=== PATIENT | male | born 1945 | race Caucasian/White ===

== ENCOUNTER 2021-10-07 16:00 | Emergency (ER) | payer MEDICARE, OTHER, SELFPAY ==
--- NOTE | ~2021-10-07 | CT_ITS ---
EXAMINATION: CT abdomen pelvis wo con DATE: 10/08/2021 01:08 INDICATION: Abdominal pain TECHNIQUE: Computed tomography (CT) of the abdomen and pelvis was performed without intravenous contr ast. Automated exposure control and iterative reconstruction technique were employed. Exam dose: 920 .61 mGy-cm total exam DLP. COMPARISON: 12/28/2012 CT abdomen pelvis FINDINGS: Mild atelectasis and reticular changes in the peripheral lower lobes in middle lobe primari ly. No basilar consolidation. Normal heart size. Coronary artery calcifications. No pericardial or pl eural effusion. Small sliding hiatal hernia. The liver, gallbladder, bile ducts, spleen, pancreas and pancreatic duct as well as adrenal glands ar e unremarkable. Exophytic 1 cm right renal cyst. 4.5 cm lower pole left renal cyst is stable since 12/28/2012. No urin yoly tract calculus or hydroureteronephrosis. There is atherosclerotic calcification of the abdominal aorta and iliac arteries but no aneurysm. No intraperitoneal or retroperitoneal or pelvic mass lesion or adenopathy or ascites. Normal appendix. No bowel obstruction, bowel wall thickening, pneumatosis or intraperitoneal free air . There are multiple diverticula of the left colon, primarily in the sigmoid area; no CT evidence of diverticulitis. Bilateral fat-containing inguinal hernias and fat-containing umbilical hernia. There is some degenerative spurring of the thoracic and lumbar spine. There is prominent degenerative change at the apophyseal joints of the mid and lower lumbar and lumbosacral area with associated min imal grade 1 anterolisthesis at L4-5. Bilateral hip osteoarthritis. No suspicious osteolytic or osteoblastic lesions. IMPRESSION: Normal appendix Diverticulosis of the left colon; no CT evidence of diverticulitis Renal cysts Small sliding hiatal hernia Reviewed, dictated and finalized at [facility]. Reviewed, dictated and finalized at [facility]. [employer]
[2021-10-07 16:29] VITALS: BP 146/82; PULSE 73; RESP 20; TEMP 36.4; O2SAT 96
[2021-10-07 21:37] VITALS: BP 149/85; PULSE 73; RESP 18; O2SAT 99
--- NOTE | 2021-10-08 00:29 | ECG_ITS ---
Measurements Intervals [place] Rate: 71 P: 45 RI: 182 QRS: 9 QRSD: 106 T: 37 QT: 399 QTc: 436 Interpretive Statements SINUS RHYTHM EARLY PRECORDIAL R/S TRANSITION BASELINE ARTIFACT- I, II, III, AVR, AVL, AVF BORDERLINE ECG Electronically Signed On 10-08-2021 6:40:24 SITE SAFETY MANAGER by Jonatan Pineda D.O.
[2021-10-08 00:31] VITALS: BP 158/81; PULSE 82; RESP 18; O2SAT 97
--- NOTE | 2021-10-08 00:31 | ED.ABDPAIN ---
HPI - Abdominal Pain General Chief Complaint: Abdominal Pain Stated Complaint: lightheadaded, nausea, bad taste in mouth Time Seen by Provider: 10/08/21 00:24 Source: patient Mode of arrival: ambulatory Limitations: no limitations History of Present Illness HPI narrative: Patient is a 76-year-old male complaining of nausea accompanied by mild abdominal pain, mid abdomen, and lightheadedness that started 1 week ago. Patient states that he currently does not have any lightheadedness and that his abdominal pain has resolved but having mild nausea at this time. Patient states that his doctor told him to come in to get evaluated. Patient denies any chest pain, shortness of breath, vomiting, diarrhea, diaphoresis, fever or chills. Related Data Home Medications Medication Instructions Recorded Confirmed aspirin 81 mg tablet,delayed 81 mg PO DAILY 08/30/19 04/21/21 release fluticasone propionate 50 1 spray INTRANASAL BID 04/21/21 04/21/21 mcg/actuation nasal spray,suspension Allergies Allergy/AdvReac Type Severity Reaction Status Date / Time No Known Allergies Allergy Mild Unverified 03/04/09 09:01 Review of Systems Review of Systems: All systems reviewed & are unremarkable except as noted in HPI and below Constitutional: Constitutional: Denies body ache(s), Denies chills, Denies excessive sweating, Denies fatigue, Denies fever(s), Denies headache(s), Denies lethargy, Denies malaise, Denies weakness and Denies weight loss Eyes: Eyes: Denies blurry vision, Denies change in vision and Denies loss of vision ENT: Denies dizziness, Denies ear discharge, Denies headache(s), Denies lip swelling, Denies epistaxis, Denies nasal congestion, Denies neck pain, Denies throat swelling and Denies tongue swelling Cardiovascular: Cardiovascular: Denies chest pain, Denies chest pain at rest, Denies chest pain with activity, Denies diaphoresis, Denies rapid heart rate, Denies edema, Denies irregular heart rhythm, Denies lightheadedness, Denies palpitations, Denies dyspnea and Denies dyspnea on exertion Respiratory: Respiratory: Denies chest congestion, Denies cough, Denies hemoptysis, Denies dyspnea and Denies dyspnea on exertion Gastrointestinal: Gastrointestinal: Denies melena, Denies hematochezia, Denies diarrhea, Denies vomiting and Denies hematemesis Musculoskeletal: Musculoskeletal: Denies abnormal gait, Denies deformity, Denies joint swelling, Denies limited range of motion, Denies neck pain and Denies numbness Neurologic: Denies Abnormal speech present, Denies abnormal gait, Denies confusion, Denies dizziness, Denies headache(s), Denies focal weakness, Denies loss of vision, Denies numbness, Denies Other visual disturbances, Denies Sensory deficit (Neuro) and Denies weakness Psychiatric: Psychiatric: Denies confusion, Denies depression, Denies auditory hallucinations, Denies homicidal ideation and Denies suicidal ideation Endocrine: Endocrine: Denies cold intolerance, Denies excessive sweating, Denies fatigue, Denies heat intolerance and Denies palpitations Hematologic/Lymphatic: Hematologic/Lymphatic: Denies easy bleeding and Denies easy bruising Allergic/Immunologic: Allergic/Immunologic: Denies lip swelling, Denies throat swelling and Denies tongue swelling PMFSH Past Medical History Medical History Abnormal fasting glucose BMI 35.0-35.9,adult Body mass index (bmi) 34.0-34.9, adult (06/19/19) Otitis externa of right ear Family History Family History Mother Patient's mother is , Onset Age: 99 Social History Social History Smoking status: Former smoker ( quit smoking 40 years ago) Smoking end date: 10/04/80 Alcohol intake: former Substance use: never Substance use type: does not use Exam Const: General: cooperative, health
[2021-10-08] MEDS: PROMETHAZINE HCL 25 MG/ML AMPUL 12.5 MG IV PUSH (00:45)
[2021-10-08] MEDS: LACTATED RINGERS 1,000 ML 999 ML IV CONT (00:45)
[2021-10-08 01:02] LABS: Basophils Absolute Auto 0.1 K/mm3 (0.0-0.1); Basophils Percent Auto 0.8 % (0.2-1.2); Eosinophils Absolute Auto 0.2 K/mm3 (0-0.3); Eosinophils Percent Auto 1.9 % (0-4.4); Hematocrit 48.6 % (42.0-52.0); Hemoglobin 16.9 g/dL (14.0-18.0); Immature Granulocyte Absolute 0.02 K/mm3 (0.00-0.031); Immature Granulocyte Percent A 0.2 % (0-0.5); Lymphocytes Absolute Auto 2.01 K/mm3 (0.9-3.2); Mean Corpuscular HGB Conc 34.8 g/dl (32-36); Mean Corpuscular Hemoglobin 32.6 pg (26-34); Mean Corpuscular Volume 93.6 fl (80-100); Monocytes Absolute Auto 0.7 K/mm3 (0.1-0.6); Neutrophils Absolute Auto 5.4 K/mm3 (1.3-6.7); Neutrophils Percent Auto 65.1 % (45.5-73.1); Platelet Count Result 150 k/mm3 (150-375); Red Blood Count 5.19 M/mm3 (4.6-6.20); Red Cell Distribution Width 13.2 % (11.5-14.5); White Blood Count 8.4 K/mm3 (4.5-10.0)
[2021-10-08 01:14] LABS: Alanine Aminotransferase 42 U/L (4-50); Albumin Level 4.7 g/dL (3.5-5.1); Alkaline Phosphatase 65 U/L (38-126); Anion Gap 13 mmol/L (8-16); Aspartate Amino Transferase 41 U/L (17-59); Bilirubin,Total 0.9 mg/dL (0.2-1.3); Blood Urea Nitrogen 19 mg/dL (9-20); Calcium 9.4 mg/dL (8.4-10.2); Carbon Dioxide 23 mmol/L (22-30); Chloride 101 mmol/L (98-107); Estimated CRCL calculation 58 ml/min; Estimated Glomerular Filt Rate > 60; Glucose 164 mg/dL (65-110); Lipase 42 U/L (23-300); Potassium 4.2 mmol/L (3.4-5.0); Sodium 137 mmol/L (137-145)
[2021-10-08 01:23] LABS: Troponin I < 0.012 ng/mL (0.000-0.034)
[2021-10-08 03:01] VITALS: BP 113/77; PULSE 69; RESP 18; O2SAT 96
== END 2021-10-08 03:01 | disposition home or self-care (01) ==
PROVIDERS: Emergency Provider Emergency Medicine; PCP Family Medicine
DX: K29.00 Acute gastritis without bleeding (principal); Z87.891 Personal history of nicotine dependence
CPT/HCPCS: 36415; 74176; 80053; 83690; 84484; 85025; 93005; 96361; 96374; 99284; J2550; J7120

== ENCOUNTER 2021-11-14 02:17 | Day surgery (SDC) | payer MEDICARE, OTHER, SELFPAY ==
[2021-11-11 11:46] VITALS: BMI 32.5
--- NOTE | 2021-11-13 09:56 | P.PNAN_ITS ---
Anes - Initial Pre Proc Eval Procedure: Operation Date: 11/14/21 09:00 Proposed Procedures p Esophagogastroduodenoscopy - Vince Haro MD Date/Time: 11/13/21 09:56 Surgeon: Vince Haro MD Pre Op Diagnosis: GERD, Esophagitis Patient Data Age: 76 Gender: M Height: 1.75 m Weight: 100 kg Allergies Allergy/AdvReac Type Severity Reaction Status Date / Time No Known Allergies Allergy Mild Verified 11/14/21 08:05 Home Medications Medication Instructions Recorded Confirmed Type fluticasone propionate 50 1 spray INTRANASAL BID 04/21/21 11/14/21 History mcg/actuation nasal spray,suspension simvastatin 40 mg tablet 40 mg PO DAILY #90 tablet 10/06/21 11/14/21 Rx omeprazole 40 mg capsule,delayed 40 mg PO DAILY #30 cap 10/07/21 11/14/21 Rx release ramipril 10 mg capsule 10 mg PO DAILY #90 cap 10/28/21 11/14/21 Rx Patient hx anesthesia problems: none Family hx anesthesia problems: none Results Review: All pre-operative results and documents have been reviewed as part of the pre-operative evaluation. [facility] Past Medical History Medical History (Updated 11/13/21 @ 09:57 by Sushant Dasilva DO) Abnormal fasting glucose BMI 32.0-32.9,adult BMI 33.0-33.9,adult BMI 35.0-35.9,adult Body mass index (bmi) 34.0-34.9, adult (06/19/19) Chronic obstructive pulmonary disease Colon cancer screening normal colonoscopy with Dr. 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 Otitis externa of right ear Family History Family History Mother Patient's mother is , Onset Age: 99 Social History Social History Smoking packs per day: 1 Smoking cigarettes per day: 20.0 Years smoked: 20 Smoking pack-years: 20.00 Smoking status: Former smoker Tobacco type: cigarettes Smoking end date: 10/04/80 Alcohol intake: current Substance use: never Substance use type: does not use Living arrangements: with family Spiritual care concerns: No Anes - Eval Final PreProcedure Day of Procedure 11/13/21 09:56 Patient weight: obese Heart: regular rate and rhythm Lungs: clear to auscultation and normal air movement Airway: Mallampati scale class II Neurological: alert and oriented Last oral intake: >/= 8 hours ASA classification: III Emergent: no Anesthetic plan: proceed Anesthesia type and monitoring: general GIVS and standard monitoring Results Review: All pre-operative results and documents have been reviewed as part of the pre-operative evaluation. Informed Consent: The patient's anesthetic plan and its attendant risks and gil efits were discussed with the patient/family/POA. Questions were solicited and answers provided to the satisfaction of the patient/family/POA.
[2021-11-14 07:55] VITALS: BP 144/81; PULSE 75; RESP 18; TEMP 36.4; O2SAT 98; BMI 32.8
[2021-11-14] MEDS: LACTATED RINGERS 1,000 ML 150 ML IV CONT (08:14)
--- NOTE | 2021-11-14 08:35 | WPDGICN ---
Assessment and Plan Assessment and plan (1) GERD (gastroesophageal reflux disease): Qualifiers: Esophagitis presence: without esophagitis Qualified Code(s): K21.9 - Gastro-esophageal reflux disease without esophagitis Code(s): K21.9 - Gastro-esophageal reflux disease without esophagitis Status: Acute Assessment and Plan: patient has a history of GE reflux. Currently appears stable on omeprazole. EGD will be performed because of intermittent abdominal pain. (2) Epigastric abdominal pain: Code(s): R10.13 - Epigastric pain Status: Acute Assessment and Plan: Patient with recent upper abdominal pain this appears to have improved with Pepcid and now omeprazole. Plan is for EGD because of necessity of going to the ER. GI Consult Note Consult date/time: 11/14/21 08:35 HPI: Dario Beard is a 76 year old male Presents for EGD. Patient reportedly went to the emergency room with vague abdominal pain. He was felt to have possible gastritis or esophagitis and placed on Pepcid. He took this for an interval of time is subsequently changed to omeprazole. He states his abdominal pain has gone away. Because of this discomfort an EGD is requested patient. Patient states that his current weight appetite bowel movements are normal. Denies abdominal pain. Most recent colonoscopy 2018 was unremarkable. Family history noncontributory. Review of Systems Review of Systems: All systems reviewed & are unremarkable except as noted in HPI and below PMFSH Past Medical History Medical History (Updated 11/14/21 @ 08:37 by Vince Haro MD) Abnormal fasting glucose BMI 32.0-32.9,adult BMI 33.0-33.9,adult BMI 35.0-35.9,adult Body mass index (bmi) 34.0-34.9, adult (06/19/19) Chronic obstructive pulmonary disease Colon cancer screening normal colonoscopy with Dr. 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 Otitis externa of right ear Family History Family History Mother Patient's mother is , Onset Age: 99 Social History Social History Smoking packs per day: 1 Smoking cigarettes per day: 20.0 Years smoked: 20 Smoking pack-years: 20.00 Smoking status: Former smoker Tobacco type: cigarettes Smoking end date: 10/04/80 Alcohol intake: current Substance use: never Substance use type: does not use Living arrangements: with family Spiritual care concerns: No Meds Home Medications and Allergies Home Medications Medication Instructions Recorded Confirmed Type fluticasone propionate 50 1 spray INTRANASAL BID 04/21/21 11/14/21 History mcg/actuation nasal spray,suspension simvastatin 40 mg tablet 40 mg PO DAILY #90 tablet 10/06/21 11/14/21 Rx omeprazole 40 mg capsule,delayed 40 mg PO DAILY #30 cap 10/07/21 11/14/21 Rx release ramipril 10 mg capsule 10 mg PO DAILY #90 cap 10/28/21 11/14/21 Rx Allergies Allergy/AdvReac Type Severity Reaction Status Date / Time No Known Allergies Allergy Mild Verified 11/14/21 08:05 Vital Signs Vital Signs - 24 hr 11/14/21 07:55 Temperature 97.6 F Pulse Rate 75 Respiratory Rate 18 Blood Pressure 144/81 H Pulse Oximetry 98 Exam Narrative: physical exam reveals patient be alert. Vital signs stable. HEENT exam is unremarkable. Patient is anicteric. Lungs are clear to auscultation and percussion. Heart is without murmur or extra sounds. Abdominal exam bowel sounds are present soft nontender with no organomegaly.
[2021-11-14] MEDS: BENZOCAINE (*SP) 60 ML SPRAY CAN (HURRICAINE) 1 SPRAY MUCOUS MEM (08:46)
[2021-11-14 08:53] VITALS: BP 122/57; PULSE 58; RESP 19; O2SAT 94
[2021-11-14 09:03] VITALS: BP 146/90; PULSE 63; RESP 20; O2SAT 96
[2021-11-14 09:13] VITALS: BP 140/86; PULSE 63; RESP 15; O2SAT 96
== END 2021-11-14 09:27 | disposition home or self-care (01) ==
PROVIDERS: PCP Family Medicine; Visit Provider Internal Medicine Gastroenterology
PROC: 0DJ08ZZ Inspection of Upper Intestinal Tract, Via Natural or Artificial Opening Endoscopic (ICD-10-PCS; CPT 43235; principal; 2021-11-14 09:00)
DX: R10.13 Epigastric pain (principal); K21.9 Gastro-esophageal reflux disease without esophagitis; J44.9 Chronic obstructive pulmonary disease, unspecified; I10 Essential (primary) hypertension; E78.2 Mixed hyperlipidemia; G47.33 Obstructive sleep apnea (adult) (pediatric); Z87.891 Personal history of nicotine dependence; E66.9 Obesity, unspecified; Z68.32 Body mass index [BMI] 32.0-32.9, adult
CPT/HCPCS: 43239; 87081; J2704; J7120

== ENCOUNTER 2022-05-05 08:24 | Outpatient (CLI) | payer MEDICARE, OTHER, SELFPAY ==
--- NOTE | 2022-05-27 19:22 | WPDSLEEPSTUD ---
Sleep Study Date of Study: 05/05/22 Ordering Provider: Floyd Castillo MD Interpreting Physician: Erna Mena DO Sleep Study Type: Polysomnogram Height: 1.78 m Weight: 104.326 kg Body Mass Index: 33.0 Neck Circumference (inches): 18 [place]: 5 Reason for Sleep Study Split Study on 06/17/2012 with AHI of 75.8. Patient titrated to CPAP 18 cm H2O. Patient can no longer tolerate CPAP and wants to pursue the Inspire device. Sleep History The patient is a 77-year-old male with COPD, hypertension, GERD, lumbago, history of tobacco use and previously diagnosed DEIRDRE that had a polysomnogram ordered by his primary care for evaluation sleep apnea. The patient can no longer tolerate CPAP and would like to pursue the Inspire procedure. The patient occasionally awakens from sleep short of breath. He rarely awakens at night with heartburn, belching or cough. He frequently snores loud enough that others complain. He rarely has trouble sleeping when he has a cold. He rarely wakes up gasping for air throughout the night. He occasionally has breathing problems at night observed by himself or others. He rarely sweats excessively at night. He rarely notices heart palpitations or irregular heartbeats during the night. He occasionally falls asleep during the day but never while driving. He denies sleep paralysis, cataplexy and hypnagogic / hypnopompic hallucinations. He denies having trouble at school or work due to sleepiness. He rarely feels afraid of going to sleep. He denies having nightmares. He occasionally remembers his dreams. He occasionally has thoughts racing through his mind. He rarely feels sad or depressed. He denies having anxiety. He denies having muscular tension. He rarely notices parts of his body jerk. He denies kicking during the night. He denies having crawling and aching feelings in his legs as well as leg pain during the night. He occasionally grinds his teeth during sleep but never awakens with morning jaw pain. He is occasionally bothered by pain during the day but never awakened by pain during the night. He denies waking up feeling stiff in the morning. He occasionally wakes up with sore achy muscles. He frequently wakes up with pain in the neck, spine and other joints. He goes to bed at 11:00 p.m. on both weekdays and weekends. It takes him 30-60 minutes to fall asleep. He wakes up 6-8 times throughout the night for unknown reasons. When he awakens, he will turn over and fall back asleep within a few minutes. Wakes up at 9:00 a.m. on both weekdays and weekends. He is unsure how many hours of sleep he gets per night. He will stay in bed for 5-10 minutes after waking up in the morning. He currently lives with his . He does not consume any caffeinated beverages within 2 hours of bedtime. He does not engage in physical exercise before bedtime. He will watch television before falling asleep. He denies taking naps in the afternoon or the evening. He drinks 2 cups of caffeinated beverage per day. He denies tobacco, alcohol and recreational drug use. [facility] Past Medical History Medical History Abnormal fasting glucose BMI 32.0-32.9,adult BMI 33.0-33.9,adult BMI 35.0-35.9,adult Body mass index (bmi) 34.0-34.9, adult (06/19/19) Chronic low back pain with left-sided sciatica Chronic obstructive pulmonary disease Chronic venous insufficiency of lower extremity right lower leg chronic venous insufficiency with venous stasis. Colon cancer screening normal colonoscopy with Dr. 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
[2022-05-27 19:35] VITALS: BMI 33.0
== END 2022-05-06 06:12 | disposition home or self-care (01) ==
LOC: ANHCSM 08:31
PROVIDERS: PCP Family Medicine; Visit Provider Family Medicine
DX: G47.33 Obstructive sleep apnea (adult) (pediatric) (principal)
CPT/HCPCS: 95810

== ENCOUNTER 2023-07-26 10:34 | Emergency (ER) | payer MEDICARE, OTHER, SELFPAY ==
[2023-07-26 11:08] VITALS: BP 121/60; PULSE 78; RESP 18; TEMP 36.6; O2SAT 97
--- NOTE | 2023-07-26 11:27 | ED.WOUNDLAC ---
HPI - Wound/Laceration General Chief Complaint: Wound/Laceration Stated Complaint: lower extremity injury Time Seen by Provider: 07/26/23 11:19 Source: patient and RN notes reviewed Mode of arrival: ambulatory Limitations: no limitations History of Present Illness HPI narrative: Patient presents today complaining of a wound to his right lower leg. Three days ago he had a tree fall on the side of his leg causing a skin tear. He has been cleaning with peroxide and applying antibiotic ointment to the area. He has noted some redness surrounding the largest skin tear with some drainage and wanted to come in for evaluation. Denies any current pain. He is not up-to-date on his tetanus vaccine. Related Data Allergies Allergy/AdvReac Type Severity Reaction Status Date / Time No Known Allergies Allergy Mild Verified 11/14/21 08:05 Review of Systems Review of Systems: CONSTITUTIONAL: Denies body aches, fever, chills, or sweats. EYES: Denies visual changes, redness, or discharge. ENT: Denies rhinorrhea, congestion, sore throat, or otalgia. CARDIOVASCULAR: Denies chest pain, palpitations, or edema. RESPIRATORY: Denies cough or dyspnea. GASTROINTESTINAL: Denies abdominal pain, nausea, vomiting, or diarrhea. GENITOURINARY: Denies dysuria or hematuria. SKIN: Denies rash, itching. + right lower leg wound MUSCULOSKELETAL: Denies back pain, joint pain, or myalgia. NEUROLOGIC: Denies headache, numbness, tingling, or weakness. PSYCH: Denies depression or anxiety. [facility] Past Medical History Medical History Abnormal fasting glucose Fasting glucose 109 with hemoglobin A1c 6.1 on 10/23/2022. BMI 32.0-32.9,adult BMI 33.0-33.9,adult BMI 35.0-35.9,adult Body mass index (bmi) 34.0-34.9, adult (06/19/19) Chronic cough Chronic low back pain with left-sided sciatica Chronic obstructive pulmonary disease Chronic venous insufficiency of lower extremity right lower leg chronic venous insufficiency with venous stasis. Colon cancer screening normal colonoscopy with Dr. 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 PSA 0.6 on 10/23/2022. Essential (primary) hypertension Gastritis normal EGD on 11/14/2021 GERD (gastroesophageal reflux disease) normal EGD on 11/14/2021 Mixed hyperlipidemia Total cholesterol 167, triglycerides 180, HDL 41, LDL 95 on 10/23/2022. Obesity (BMI 30.0-34.9) DEIRDRE on CPAP failed CPAP. Repeat sleep study on 05/05/2022 with severe DEIRDRE with AHI 51.1 with oxygen desaturation to 82% with patient considering inspire procedure . Left hypoglossal nerve stimulator implant 09/01/2022. Hemoglobin 15.8 on 10/23/2022. Otitis externa of right ear Family History Family History Mother Patient's mother is , Onset Age: 99 Social History Social History Smoking packs per day: 1 Smoking cigarettes per day: 20.0 Years smoked: 20 Smoking pack-years: 20.00 Smoking status: Former smoker Tobacco type: cigarettes Smoking end date: 10/04/80 Alcohol intake: current Substance use: never Substance use type: does not use Lack of Transportation: No Lack of Food: Never True Current Housing: I Have Housing Concerned About Future Housing: No Difficulty Paying Gas/Electric Bills: No Difficulty Paying for Meds: No Currently Unemployed: No Education: High School Diploma/GED Difficulty w/ Childcare or Family Care: No Living arrangements: with family Spiritual care concerns: No Comments At time of signature, I have reviewed and agree with nursing past medical, surgical, social and family history unless otherwise noted. Please see nursing ch
[2023-07-26] MEDS: TETANUS/DIPHTHERIA TOXOIDS ADSORB 0.5 ML VIAL (*BKC) IM (11:36)
== END 2023-07-26 11:39 | disposition home or self-care (01) ==
PROVIDERS: Emergency Provider Nurse Practitioner; PCP Family Medicine
DX: S81.811A Laceration without foreign body, right lower leg, initial encounter (principal); L03.115 Cellulitis of right lower limb; W20.8XXA Other cause of strike by thrown, projected or falling object, initial encounter; Z23 Encounter for immunization; J44.9 Chronic obstructive pulmonary disease, unspecified; I10 Essential (primary) hypertension; K21.9 Gastro-esophageal reflux disease without esophagitis; E78.2 Mixed hyperlipidemia; E66.9 Obesity, unspecified; Z68.32 Body mass index [BMI] 32.0-32.9, adult; G47.33 Obstructive sleep apnea (adult) (pediatric); Z87.891 Personal history of nicotine dependence; I87.2 Venous insufficiency (chronic) (peripheral)
CPT/HCPCS: 90471; 90714; 99213; G0463

== ENCOUNTER 2023-10-07 07:10 | Outpatient (RCR) | payer MEDICARE, OTHER, SELFPAY ==
[2023-09-02 11:59] VITALS: BMI 32.3
== END 2023-11-22 08:12 | disposition home or self-care (01) ==
LOC: ANHWOC 07:10
PROVIDERS: PCP Family Medicine; Visit Provider Family Medicine
DX: S81.801D Unspecified open wound, right lower leg, subsequent encounter (principal); S81.812D Laceration without foreign body, left lower leg, subsequent encounter; L03.119 Cellulitis of unspecified part of limb; L02.419 Cutaneous abscess of limb, unspecified
CPT/HCPCS: 99212; 99213; A9270; G0463

== ENCOUNTER 2024-05-01 11:44 | Outpatient (CLI) | payer MEDICARE, OTHER, SELFPAY ==
--- NOTE | ~2024-05-01 | US_ITS ---
RIGHT LOWER EXTREMITY VENOUS ULTRASOUND Ordering provider: Floyd Castillo MD History: . R60.0 - Localized edema . Comparison: None. FINDINGS: --COMMON FEMORAL: Patent and free of thrombus. Normal compressibility, phasic flow and augmentation. --PROXIMAL SUPERFICIAL FEMORAL: Patent and free of thrombus. Normal compressibility, phasic flow and augmentation. --DISTAL SUPERFICIAL FEMORAL: Patent and free of thrombus. Normal compressibility, phasic flow and au gmentation. --POPLITEAL: Patent and free of thrombus. Normal compressibility, phasic flow and augmentation. --POSTERIOR TIBIAL: Patent and free of thrombus. Normal compressibility, phasic flow and augmentation . IMPRESSION: Negative right lower extremity venous US. No deep vein thrombosis. Reviewed, dictated and finalized at [facility].
== END 2024-05-01 11:45 | disposition home or self-care (01) ==
LOC: ANHIMG 11:45
PROVIDERS: PCP Family Medicine; Visit Provider Nurse Practitioner Family
DX: R60.0 Localized edema (principal)
CPT/HCPCS: 93971

== ENCOUNTER 2025-02-23 12:23 | Outpatient (CLI) | payer MEDICARE, OTHER, SELFPAY ==
--- OUTSIDE RECORDS SUMMARY | 2025-02-23 12:28 | XMS_ITS | Referral Summary ---
Author Organization [facility] Address [address] [place] [address] Care Team Providers Care Noodle Catalyst Maker Name Role Phone Floyd Castillo MD Primary Care Provider [phone] Encounters Date Type Department Care Team Description 01/31/2025 9:30 AM CDT Office Visit [facility] Neuro Sleep [address] [place] [address] 6th [address] [place] [address] Megan Smart MD DEIRDRE (obstructive sleep apnea) (Primary Dx) from Last 3 Months Allergies No known active allergies Medications ramipriL (ALTACE) 10 mg capsuleIndicatio ns:hypertension Take 1 capsule (10 mg total) by mouth every morning 04/04/2022 Active famotidine (PEPCID) 20 mg tabletIndication s:gastroesophage al reflux disease Take 1 tablet (20 mg total) by mouth 2 (two) times a day 06/04/2022 Active simvastatin (ZOCOR) 40 mg tabletIndication s:hyperlipidemia Take 1 tablet (40 mg total) by mouth every morning 04/04/2022 Active zaleplon (SONATA) 5 mg capsuleIndicatio ns:Sleep Maintenance Insomnia-4 Hours Sleep Time Remaining Take 1 capsule (5 mg total) by mouth nightly 30 capsule 5 07/30/2023 Active Active Problems Problem Noted Date Diagnosed Date Obstructive sleep apnea 06/11/2022 Overview (09/15/2022): DIAGNOSIS: Obstructive sleep apnea PROCEDURE PERFORMED: (Robson 09/01/22) Left hypoglossal nerve stimulator implantation Generator placement Left chest wall Lead placement left intercostal muscle Immunizations Immunization Administration Dates Next Due Influenza, Quadrivalent, Hig h Dose, Preservative Free, Intrr 05/28/2022 Social History Tobacco Use Types Packs/Day Years Used Date Smoking Tobacco: Former Cigarettes Q uit: 1982 Smokeless Tobacco: Never Tobacco Cessation:Counseling Given: Not Answered AUDIT-C Answer Date Recorded Q1: How often do you have a drink containing alc ohol? Monthly or less 09/01/2022 Q2: How many drinks containi ng alcohol do you have on a typical day when you are drinking? 1 or 2 09/01/2022 Q3: How often do you have si x or more drinks on one occasion? Never 09/01/2022 Sex and Gender Information Value Date Recorded Sex Assigned at Not on file Legal Sex Male 1:29 PM CDT Gender Identity Not on file Sexual Orientation Not on file Last Filed Vital Signs Vital Sign Reading Time Taken Comments Blood Pressure 148/81 01/31/2025 9:33 AM CDT Pulse 68 01/31/2025 9:33 AM CDT Temperature 36.6 C (97.8 F) 01/31/2025 9:33 AM CDT Respiratory Rate 12 09/01/2022 8:00 PM DIRECTOR TELEVISION NEWS Oxygen Saturation 98% 01/31/2025 9:33 AM CDT Inhaled Oxygen Concentration - - Weight 108.6 kg (239 lb 8 oz) 01/31/2025 9:33 AM CDT Height 177.8 cm (5' 10 ) 01/31/2025 9:33 AM CDT Body Mass Index 34.36 01/31/2025 9:33 AM CDT Plan of Treatment Not on file Medical Devices Implanted Type Area Industrial Sewer Device Identifier Shelf Expiration Date Model / Serial / Lot [employer] Inspire 3 Electrode Cuff Tunnel Joaquin Lead Neurostimulator Sterile 4063 - [id number] - [id number] Implanted:Qty: 1 on 09/01/2022 by Nader Chance MD at [facility] Left: Neck [employer] 06/22/2025 4063 / [id number] / [employer] Inspire Generator 3028 - [id number] Implanted:Qty: 1 on 09/01/2022 by Nader Chance MD at [facility] Left: Chest [employer] 02/17/2025 3028 / / [id number] [employer] Lead Neurostimulator Inspire Respiratory Sens Cycle Strl Lf 4340 - [id number] - [id number] Implanted:Qty: 1 on 09/01/2022 by Nader Chance MD at [facility] Left: Chest [employer] 06/29/2025 4340 / [id number] / [facility] Care Teams Noodle Catalyst Maker Relationship Specialty Start Date End Date Floyd Castillo MD [address] [address] PCP - General Family Medicine 05/14/22
--- OUTSIDE RECORDS SUMMARY | 2025-02-23 12:28 | XMS_ITS | Clinical Summary ---
Author Organization [facility] Address [address] [place] [address] Care Team Providers Care Traveling Crane Operator Name Role Phone Floyd Castillo MD Primary Care Provider [phone] Allergies No known active allergies Medications ramipriL [...] chest wall Lead placement left intercostal muscle Encounters Date Type Department Care Team Description 01/31/2025 9:30 AM CDT Office Visit [facility] Neuro Sleep [address] [place] [address] 6th [address] [place] [address] Megan Smart MD DEIRDRE (obstructive sleep apnea) (Primary Dx) from Last 3 Months Immunizations Immunization Administration Dates Next Due Influenza, Quadrivalent, Hig h Dose, Preservative Free, Intrr 05/28/2022 Surgical History Surgery Date Site/Laterality Comments THROAT SURGERY 10/04/2001 - 10/03/2002 INGUINAL HERNIA REPAIR 10/04/1950 - 10/03/1951 OTHER SURGICAL HISTORY 07/17/2022 Drug Induced Sleep Endoscopy COLONOSCOPY Medical History Medical History Date Comments GERD (gastroesophageal reflux disease) Hearing loss Hypertension Sleep apnea Family History Medical History Relation Name Comments Anesthesia problems Neg Hx Social History Tobacco Use Types Packs/Day Years [...] on file Sexual Orientation Not on file Obstetrics History Last Filed Vital Signs Vital Sign Reading Time Taken Comments Blood Pressure 148/81 01/31/2025 9:33 AM CDT Pulse 68 01/31/2025 9:33 AM CDT Temperature 36.6 C (97.8 F) 01/31/2025 9:33 AM CDT Respiratory Rate 12 09/01/2022 8:00 PM NURSERY RN Oxygen Saturation 98% 01/31/2025 9:33 AM CDT Inhaled Oxygen Concentration - - Weight 108.6 kg (239 lb 8 oz) 01/31/2025 9:33 AM CDT Height 177.8 cm (5' 10 ) 01/31/2025 9:33 AM CDT Body Mass Index 34.36 01/31/2025 9:33 AM CDT Plan of Treatment Health Maintenance Due Date Last Done Comments Depression Screening 1943 DTaP/Tdap/Td Vaccine (1 - Tdap) 1954 Hepatitis B Screening 1961 Pneumococcal vaccine 65+ (1 of 1 - PCV) 1993 Zoster Vaccine (1 of 2) 1993 Well Visit 65+ 01/29/2008 Fall Risk Assessment 09/01/2023 09/01/2022 Covid-19 Vaccine ( season) 2024 05/28/2022, 12/17/2020, 11/26/2020 Influenza Vaccine (Season Ended) 2025 05/28/20, 06/17/2020 Medical Devices Implanted Type Area Access Liaison Device Identifier Shelf Expiration Date Model / Serial / Lot [employer] Inspire 3 Electrode Cuff Tunnel Joaquin Lead Neurostimulator Sterile 4063 - [id number] - [id number] Implanted:Qty: 1 on 09/01/2022 by Nader Chance MD at [facility] Left: Neck [employer] 06/22/2025 4063 / [id number] / [employer] Inspire Generator 3028 - [id number] Implanted:Qty: 1 on 09/01/2022 by Nader Chance MD at [facility] Left: Chest [employer] 02/17/2025 3028 / / [id number] [employer] Lead Neurostimulator Inspire Respiratory Sens Cycle Strl Lf 4340 - [id number] - [id number] Implanted:Qty: 1 on 09/01/2022 by Nader Chance MD at [facility] Left: Chest [employer] 06/29/2025 4340 / [id number] / Insurance MEDICARE [employer] [facility] Care Teams Traveling Crane Operator Relationship Specialty Start Date End Date Floyd Castillo MD [address] [address] PCP - General Family Medicine 05/14/22
--- OUTSIDE RECORDS SUMMARY | 2025-02-23 12:28 | XMS_ITS | Clinical Summary ---
Author Organization [facility] Address [address] [place] [address] Care Team Providers Care Automatic Tire Tester Name Role Phone Unavailable Primary Care Provider Unavailabl e Source Comments [facility],non-owned Affiliates and Associated Physician Practices is amultiple site organization consisting of ambulatory clinics and hospital sitesin [place], [place], [place] and [place]. This disclosure is being madepursuant to the Care Everywhere program and may not contain all information available regarding this patient. Last updated 18.[facility] Immunizations Immunization Administration Dates Next Due INFLUENZA VACCINE, HIGH-DOSE , QUADR. (FLUZONE HIGH-DOSE QUADRIVALENT; 65Y+), 0.7 ML (HD-IIV4) 06/17/2020 Social History Tobacco Use Types Packs/Day Years Used Date Smoking Tobacco: Never Assessed Sex and Gender Information Value Date Recorded Sex Assigned at Not on file Legal Sex Male 11:23 AM CDT Gender Identity Not on file Sexual Orientation Not on file Plan of Treatment Health Maintenance Due Date Last Done Comments DTAP/TDAP/TD VACCINES (1 - Tdap) 1962 PNEUMOCOCCAL VACCINE 50+ (1 of 1 - PCV) 1993 ZOSTER VACCINE (1 of 2) 1993 Respiratory Syncytial Virus (RSV) Vaccine Pt: or over 60 yrs (1 - 1-dose 75+ series) 2018 COVID-19 VACCINE ( - 2023-2 5 season) 2024 DEPRESSION SCREENING 10/04/2024 INFLUENZA VACCINE (Season Ended) 2025 06/17/20 20 HEPATITIS B VACCINE Aged Out No longe r eligible based on patient's age to complete this topic HIB VACCINE Aged Out No longer eligi ble based on patient's age to complete this topic HPV VACCINE Aged Out No longer eligi ble based on patient's age to complete this topic MENINGOCOCCAL (Group B) VACC INE SHARED DECISION-MAKING Aged Out No longer eligibl e based on patient's age to complete this topic MENINGOCOCCAL GROUPS A/C/Y/W VACCINE Aged Out No longer eligible b ased on patient's age to complete this topic Insurance MEDICARE [facility]
--- NOTE | 2025-02-23 15:48 | WPDPFTINT ---
PFT Procedure Performed PFT Procedure Performed Spirometry with Pre/Post Bronchodilator Plethysmography (Lung Vol) Diffusing Cap (DLCO) Flow Vol Loop PFT Interpretation This is a pulmonary function test with pre and post-bronchodilator spirometry, plethysmography and diffusing capacity. The test was performed and results interpreted in accordance with the 2019 and 2005 ATS/ERS Task Force guidelines respectively using the Global Lung Function Initiative-2012 reference equations. Patient demonstrated good effort and cooperation. Reproducibility criteria were met. The quality of the pre bronchodilator spirometry maneuver was Grade A and post bronchodilator spirometry maneuver was Grade A. Findings: Spirometry: The contour the inspiratory and expiratory flow tracing are normal. The pre bronchodilator FVC is 3.83 L, 100% predicted. The pre bronchodilator FEV1 is 2.82 L, 100% predicted. The pre bronchodilator FEV1: FVC ratio 74%. The post bronchodilator FVC is 3.84 L, representing a 1% increase. The post bronchodilator FEV1 is 2.92 L, representing a 4% increase. The post bronchodilator FEV1: FVC ratio is 76%. Plethysmography: The total lung capacity is 6.04 L, 85% predicted. The functional residual capacity is 3.18 L, 83% predicted. The residual volume is 2.21 L, 82% predicted. Diffusing capacity: The diffusing capacity unadjusted for hemoglobin and carboxyhemoglobin is 20.2, 86% predicted. Diffusing capacity adjusted for alveolar volume is 3.86, 108% predicted. Impression: The spirometry is normal without evidence of an obstructive abnormality. There is no significant improvement after inhaling a single dose of albuterol. The lung volumes are normal. The diffusing capacity is normal. There are no prior studies for comparison
== END 2025-02-23 12:24 | disposition home or self-care (01) ==
LOC: ANHPFT 12:26
PROVIDERS: PCP Family Medicine; Visit Provider Family Medicine
DX: J44.9 Chronic obstructive pulmonary disease, unspecified (principal)
CPT/HCPCS: 94060; 94726; 94729